=== PATIENT | female | born 1945 | race Hispanic/Latino ===

== ENCOUNTER 2016-08-15 11:01 | Emergency (ER) | payer MEDICARE, MEDICAID ==
[~2016-08-15] VITALS: Ht 160 cm; Wt 75.0 kg
[~2016-08-15 11:01] MED LIST: ASPI-1012 PO; CHOL100043 PO; CITA10TA14 PO; GLPZ5T PO; INSU100C4 SUBQ; INSU100V23 SQ; LEVO88TA4 PO; LORA10CA PO; METF-495 PO; PANT40TA2 PO; SMV40T PO; SYN.15T2 PO; ZES10 PO
[2016-08-15 11:03] VITALS: BP 131/81; PULSE 86; RESP 12; O2SAT 97
--- NOTE | 2016-08-15 11:23 | ED.REPORT ---
HPI-Abd Pain F 40 and Over Date of Service Aug 15, 2016 ED Provider: Paul Shetty MD 71 year old female presents to the ER complaining of three days of persistent stabbing left groin pain that radiates around her left side into her back, worsening today. Patient is unable to identify any actions or behavior that exacerbates symptoms. Patient denies fever, hematuria, dysuria, nausea, vomiting , and changes in bowel or urinary habits. Nursing Notes Stated Complaint: LEFT GROIN PAIN Chief Complaint: Female Abdominal Pain Nursing Notes Reviewed: Yes Allergies: Coded Allergies: No Known Allergies (Verified , 03/20/16) Scheduled Aspirin-Expunged Drug, Do Not Renew! (Ecotrin-Expunged Drug, Do Not Renew!) 81 Mg Tabec 81 MG PO QPM Cholecalciferol (Vitamin D3) (Vitamin D) 1,000 Unit Tablet 2,000 UNIT PO DAILY Ciprofloxacin (Ciprofloxacin) 500 Mg Tablet 500 MG PO BID Citalopram-Expunged Drug, Do Not Renew! (Citalopram-Expunged Drug, Do Not Renew! ) 10 Mg Tablet 10 MG PO QAM Glipizide (Glipizide) 5 Mg Tablet 5 MG PO DAILY Insulin Glargine-Expunged Drug, Do Not Renew! (Lantus-Expunged Drug, Do Not Renew!) 100 Units/Ml Pen.ij.kit 60 UNIT SUBQ PM Insulin Lispro-Expunged Drug, Do Not Renew! (Humalog-Expunged Drug, Do Not Renew !) 300 Unit Vial 10 UNIT SQ TID Levothyroxine (Levothyroxine) 88 Mcg Tablet 88 MCG PO DAILY Levothyroxine-Expunged Drug, Do Not Renew! (Synthroid-Expunged Drug, Do Not Renew!) 150 Mcg Tablet 75 MG PO DAILYAC 0.15 MG = 150 MCG Lisinopril-Expunged Drug, Do Not Renew! (Lisinopril-Expunged Drug, Do Not Renew! ) 10 Mg Tablet 10 MG PO DAILY Loratadine (Claritin) 10 Mg Capsule 10 MG PO DAILY Metformin ER (Metformin ER) 500 Mg Tablet 500 MG PO DAILY Pantoprazole DR (Protonix) 40 Mg Tablet 40 MG PO DAILYAC Simvastatin-Expunged Drug, Choose New Med! (Simvastatin-Expunged Drug, Choose New Med!) 40 Mg Tablet 40 MG PO HS INPATIENT MAX DOSE 40 MG General Time Seen by MD: 11:13 Chief Complaint Inguinal pain left Hx Obtained From: Patient Arrived By: Walk-in Sudden in Onset?: No Onset Occurred: 3 days ago Symptom Duration: Since onset Associated with: Denies: Chills, Diarrhea, Dysuria, Fever, Hematochezia, Hematuria, Melena, Nausea, Vomiting Past Medical History Past Medical History Notes: Metformin 500mg ASA 81mg Simvistatin 40mg Vitamin D3 2000unit Levothyroxine 75mcg Citalopram 10mg Lisinopril 10mg Past Medical History Obstructive sleep apnea, on CPAP High cholesterol Hypothyroidism Anxiety Reports: Diabetes mellitus, Hypertension Past Surgical History Appendectomy, cholecystectomy, stomach ulcer surgery. Family History Noncontributory Social History Alcohol Use: Denies alcohol use Drug Use: Denies drug use Other Social History: Local resident Ambulatory Status Independent Review of Systems Constitutional: Denies: Chills, Fever Respiratory: Denies: Non-productive cough, Shortness of breath GI: Reports: Abdominal pain (Left Groin), Denies: Diarrhea, Hematemesis, Hematochezia, Nausea, Vomiting Female: Denies: Dysuria, Flank pain, Hematuria, Pelvic pain, Urinary frequency, Urinary urgency, Vaginal bleeding - abnl, Vaginal discharge Complete sys rev & neg: except as marked. Physical Exam Vital Signs Vital Signs (First) Date Time Temp Pulse Resp B/P Pulse Ox O2 Delivery O2 Flow Rate FiO2 08/15/16 11:03 36.3 86 12 131/81 97 Room Air Initial VS: Reviewed Head / Eyes: Atraumatic, Normocephalic Neck: Supple, Non-tender, Full range of motion Extremities: Vascular intact, Neuro intact, No swelling, No tenderness Skin: Warm, Dry, No cyanosis Neurologic: Alert, Oriented, Nonfocal Psychiatric: Mood/affect normal, Behavior normal, Normal thought content General/Constitutional: Awake, Alert, Well developed, Well nourished Respiratory / Chest: Breath sounds NL, Breath sounds = bilat, No respiratory distress, No rales, No rhonchi, No wheezing, No stridor Cardiovascular: Heart rate NL, Regular rhythm, Heart sounds NL, Peripheral circulation NL Abdomen: Soft, No guarding, No rebound, No distention Well healed midline surgical incision. Vague tenderness about left groin region. No obvious hernias, swelling, redness or warmth. Back: Inspection NL, Non-tender, No CVA tenderness Interpretation & Diagnostics Lab Results Interpretation Result Diagram: 08/15/16 1210 08/15/16 1210 Test 08/15/16 11:15 08/15/16 12:10 Urine Color Straw (YELLOW) Urine Appearance Clear (CLEAR,HAZY) Urine pH 5.0 (5.0-8.0) Urine Specific [place] 1.014 (1.003-1.035) Urine Protein Negativemg/dL (NEG,TRACE) Urine Glucose (UA) Negativemg/dL (NEGATIVE) Urine Ketones Negativemg/dL (NEGATIVE) Urine Occult Blood Negative (NEGATIVE) Urine Nitrite Negative (NEGATIVE) Urine Bilirubin Negative (NEGATIVE) Urine Urobilinogen Normalmg/dL (NORMAL) Urine Leukocyte Esterase Moderate (NEGATIVE) Urine RBC 0-2/hpf (0-2) Urine WBC 11-50/hpf (0-5) Urine Epithelial Cells Moderate/hpf (NONE-MOD) Urine Crystals None seen (NONE SEEN) Urine Bacteria Moderate/hpf (NONE-FEW) Urine Hyaline Casts None/lpf (NONE) Urine Granular Casts None seen (NONE SEEN) Urine Waxy Casts None seen (NONE SEEN) Urine Red Blood Cell Casts None seen (NONE SEEN) Urine White Blood Cell Casts None seen (NONE SEEN) Urine Mucus None seen (None Seen) Urine Trichomonas None seen (NONE SEEN) Urine Yeast None (NONE SEEN) Urinalysis Comment None Urine Culture Reflexed Indicated Hold Urine Received (Received) White Blood Count 4.5th/mm3 (3.8-10.1) Red Blood Count 3.74mil/mm3 (3.90-5.20) Hemoglobin 11.3g/dL (12.0-15.6) Hematocrit 34.9% (35.0-46.0) Mean Corpuscular Volume 93.3fL (81-100) Mean Corpuscular Hemoglobin 30.2pg (27.0-35.0) Mean Corpuscular Hemoglobin Concent 32.4% (32.0-37.0) Red Cell Distribution Width 13.0% (12.3-15.4) Platelet Count 207bil/L (150-400) Neutrophils (%) (Auto) 56.5% (40-74) Lymphocytes (%) (Auto) 33.6% (14-46) Monocytes (%) (Auto) 6.6% (4-12) Eosinophils (%) (Auto) 2.4% (0-5) Basophils (%) (Auto) 0.7% (0-3) Sodium Level 134mEq/L (134-144) Potassium Level 4.4mEq/L (3.5-5.2) Chloride Level 97mEq/L (97-108) Carbon Dioxide Level 22mmol/L (18-29) Blood Urea Nitrogen 40mg/dL (8-27) Creatinine 1.28mg/dL (0.57-1.00) Estimat Glomerular Filtration Rate 59mL/min (>59) Glucose Level 217mg/dL (60-99) Calcium Level 9.4mg/dL (8.5-10.1) Magnesium Level 2.0mg/dL (1.6-2.6) Total Bilirubin 0.4mg/dL (0.0-1.2) Aspartate Amino Transf (AST/SGOT) 14U/L (0-50) Alanine Aminotransferase (ALT/SGPT) 10U/L (0-32) Alkaline Phosphatase 74U/L (25-165) Total Protein 7.7g/dL (6.4-8.4) Albumin 4.0g/dL (3.4-5.0) Lipase 34U/L (13-60) Hold Olivares Top Tube Received (Received) CT Abd / Pelvis Interpretation IMPRESSION: No acute abnormality. Hepatic steatosis. Incidental colonic diverticulosis. Fat-containing umbilical hernia. Appendix not technically visualized however no suspicious right lower quadrant inflammatory changes. Please correlate clinically. Dictated by: Aidan Diaz M.D. on 08/15/2016 at 14:29 Approved by: Aidan Diaz M.D. on 08/15/2016 at 14:33 Study type: Abdominal CT IV contrast Interpretation / Wet Read by: Interpret - Radiologist Re-Eval/Medical Decision Med Decision/Clinical Course 71 year old female presents to the ER complaining of three days of persistent stabbing left groin pain that radiates around her left side into her back, worsening today. Patient is unable to identify any actions or behavior that exacerbates symptoms. Patient denies fever, hematuria, dysuria, nausea, vomiting , and changes in bowel or urinary habits. Emergency Department the patient is afebrile and hemodynamically stable examination as above. Laboratory studies notable as below: No leukocytosis Hct 34.9 BUN 40 Creatinine 1.28 CMP otherwise normal UA shows moderate leukocyte esterase, moderate bacteria, nitrite negative, 11- [address] scan was obtained that demonstrated no evidence of acute surgical intra- abdominal process or incarcerated hernia. Patient is a somewhat vague historian and at this time extensive workup as above is notable only for evidence of urinary tract infection. Patient reported symptomatic improvement after treatment with Tylenol, IV fluids and Zofran for nausea. Serial abdominal examinations remained benign. Overall presentation at this time most consistent with urinary tract infection. Patient will be treated with a 7 day course of ciprofloxacin. Follow-up and return precautions were reviewed in detail and she was discharged in stable condition. Re-Evaluation/Progress : Time of Eval: 14:33 Re-Evaluation/Progress Note: Discussed lab and radiology results and plan to discharge. Patient is amenable to the plan. Return precautions given. All other questions addressed. Consultation : Consulted With: On-call physician (Radiology) Call Returned at: 14:28 Note: Discussed CT results with radiology. No acute changes. Counseled Regarding: Diagnosis, Lab results, Need for follow-up, When/why to return to ED Discharge & Departure Primary Impression: UTI (urinary tract infection) Urinary tract infection type: site unspecified Hematuria presence: with hematuria Qualified Code: N39.0 - Urinary tract infection, site not specified Additional Impression: Groin pain Laterality: left Qualified Code: R10.32 - Left lower quadrant pain Disposition: Home Discharge Condition All VS Reviewed: Yes Condition: Stable Patient Instructions: Urinary Tract Infection in Women (DC) Additional Instructions: Thank you for seeking care at emergency room. It is difficult for us to make definitive diagnoses in the ED but we believe that you are experiencing a urinary tract infection. Our primary goal today in the ED was to evaluate you for any life-threatening conditions. Your evaluation was reassuring. You will be discharged with a prescription for antibiotics. Please take these for 7 days as directed. Take all of the antibiotics, even if you are feeling better. You should follow-up with your primary doctor this week. You should return to the ED immediately if you develop worsening symptoms, fever , vomiting, or any other concerning signs or symptoms. Thank you for letting us partake in your care today. Fortino por buscar atencin en la zamzam de emergencias. Es difcil para nosotros hacer diagnsticos definitivos en el DE [place] creemos que usted est experimentando thomas infeccin del tracto urinario. Nuestra meta principal hoy en el ED fue evaluarle para cualquier condicin que amenaza la moshe. Bettencourt evaluacin fue tranquilizadora. Se le madi de bello con thomas receta de antibiticos. Por favor, tmelos por 7 d as segn las indicaciones. Supai todos los antibiticos, incluso si se siente mejor. Debe hacer un seguimiento con bettencourt mdico de cabecera esta semana. Debe regresar inmediatamente al servicio de urgencias si presenta sntomas que empeoran, fiebre, vmitos o cualquier otro signo o sntoma. Fortino por dejarnos participar en bettencourt cuidado hoy. Referrals: Al Figueroa MD (PCP) Scribe Attestation Portions of this note were transcribed by Alex Watson. I, Dr. Shetty, personally performed the history, physical exam and medical decision-making; I reviewed and confirmed the accuracy of the information in the transcribed note. Signed by: Alex Watson, Eric, 08/15/2016 and 14:36 copies to: Al Figueroa MD, Beck O MD Aug 15, 2016 11:23 ALEX WATSON Aug 15, 2016 12:00
[2016-08-15] MEDS ORDERED: 0.9% Sodium Chloride 1,000 ML IV ONE (11:55)
[2016-08-15] MEDS ORDERED: Ondansetron 2 mg/mL 2 mL Inj IVPUSH ONE (11:55)
[2016-08-15 12:18] LABS: APPEARANCE,URINE CLEAR (CLEAR,HAZY); COLOR,URINE STRAW (YELLOW)
[2016-08-15 12:19] LABS: OCCULT BLOOD,URINE NEGATIVE (NEGATIVE); UROBILINOGEN,URINE NORMAL (NORMAL)
[2016-08-15 12:24] LABS: BASOPHILS % (AUTO) 0.7 % (0-3); EOSINOPHILS % (AUTO) 2.4 % (0-5); MONOCYTES % (AUTO) 6.6 % (4-12); Mean Corpuscular Hemoglobin 30.2 pg (27.0-35.0); Mean Corpuscular Volume 93.3 fL (81-100); NEUTROPHILS % (AUTO) 56.5 % (40-74); Platelet Count 207 bil/L (150-400)
[2016-08-15] MEDS ORDERED: CIPR-198 PO (13:36)
[2016-08-15 13:45] VITALS: BP 101/56; PULSE 69; RESP 18; O2SAT 98
--- NOTE | 2016-08-15 14:35 | DRSVH ---
PROCEDURE: CT ABDOMEN AND PELVIS WITH CONTRAST ([id number]) INDICATIONS: LLQ/inguinal pain TECHNIQUE: After the administration of intravenous contrast, 5 mm thick sections acquired from the diaphragm to the symphysis. 5 mm coronal and sagittal reformats were acquired. For radiation dose reduction, the following was used: automated exposure control, adjustment of mA and/or kV according to patient angel mortensen. COMPARISON: [facility], CT, ABD/PELVIS W/CON (PNL), 07/30/2011, 20:43. FINDINGS: Image quality: Excellent. ABDOMEN: Lung bases: Scattered bibasilar scarring/atelectasis. Solid organs: Hepatic steatosis otherwise liver and spleen are normal in size and enhancement. Gallb ladder surgically absent. Biliary system is non dilated. Pancreas enhances normally. No adrenal no dules. Kidneys demonstrate normal size and enhancement, without hydronephrosis. Peritoneum and bowel: Bowel loops demonstrate normal wall thickness and caliber. No free fluid or a ir. Incidental colonic diverticulosis. The appendix is not well-visualized however no suspicious rig ht lower quadrant plantar changes Nodes and vessels: No retroperitoneal or mesenteric adenopathy by size criteria. Aorta and inferior vena cava are normal in size. Miscellaneous: 2 cm fat-containing umbilical hernia, with postsurgical effects PELVIS: Genitourinary: Bladder wall thickness is normal. Miscellaneous: No inguinal hernias or adenopathy. Bones: No suspicious bony lesions. No vertebral body compression fractures. IMPRESSION: No acute abnormality. Hepatic steatosis. Incidental colonic diverticulosis. Fat-containing umbilical hernia. Appendix not technically visualized however no suspicious right lower quadrant inflammatory changes. Please correlate clinically. Dictated by: Aidan Diaz M.D. on 08/15/2016 at 14:29 Approved by: Aidan Diaz M.D. on 08/15/2016 at 14:33
== END 2016-08-15 14:38 | disposition home or self-care (01) ==
LOC: SED 11:01
DX: N39.0 Urinary tract infection, site not specified (principal); B96.20 Unspecified Escherichia coli [E. coli] as the cause of diseases classified elsewhere; E11.9 Type 2 diabetes mellitus without complications; I10 Essential (primary) hypertension; E03.9 Hypothyroidism, unspecified; Z79.84 Long term (current) use of oral hypoglycemic drugs; Z79.82 Long term (current) use of aspirin; Z79.4 Long term (current) use of insulin
CPT/HCPCS: 36415; 74177; 80053; 81000; 83690; 83735; 85025; 87077; 87086; 87088; 87186; 96361; 96374; 99285; J2405; J7030; Q9967

== ENCOUNTER 2016-08-27 09:49 | Emergency (ER) | payer MEDICARE, MEDICAID ==
[~2016-08-27] VITALS: Ht 160 cm; Wt 78.0 kg
[~2016-08-27 09:49] MED LIST changes: +CIPR-198 PO
[2016-08-27 10:05] VITALS: BP 123/81; PULSE 86; O2SAT 97
--- NOTE | 2016-08-27 11:02 | ED.REPORT ---
HPI-Abd Pain F 40 and Over Date of Service Aug 27, 2016 ED Provider: Al Khanna MD Pt is a 71 y/o female w/ a hx of IDDM, HTN, hyperlipidemia, presenting to the ED c/o LLQ abdominal pain and left lower back pain onset 1 month ago. The patient was seen on Aug 15 for similar LLQ abdominal pain and was diagnosed with a UTI and placed on antibiotics. She went to her PCP for re-evaluation and was told that she did not have a UTI so she stopped her course of abx. Her pain has persisted. She denies fever, N/V/D, bloody stools, CP, SOB, dysuria, hematuria, constipation. Nursing Notes Stated Complaint: LOWER LT ABDOMINAL PAIN Chief Complaint: Female Abdominal Pain Nursing Notes Reviewed: Yes Allergies: Coded Allergies: No Known Allergies (Verified , 03/20/16) Scheduled Aspirin-Expunged Drug, Do Not Renew! (Ecotrin-Expunged Drug, Do Not Renew!) 81 Mg Tabec 81 MG PO QPM Cholecalciferol (Vitamin D3) (Vitamin D) 1,000 Unit Tablet 2,000 UNIT PO DAILY Ciprofloxacin (Ciprofloxacin) 500 Mg Tablet 500 MG PO BID Ciprofloxacin (Ciprofloxacin) 500 Mg Tablet 500 MG PO BID Citalopram-Expunged Drug, Do Not Renew! (Citalopram-Expunged Drug, Do Not Renew! ) 10 Mg Tablet 10 MG PO QAM Glipizide (Glipizide) 5 Mg Tablet 5 MG PO DAILY Insulin Glargine-Expunged Drug, Do Not Renew! (Lantus-Expunged Drug, Do Not Renew!) 100 Units/Ml Pen.ij.kit 60 UNIT SUBQ PM Insulin Lispro-Expunged Drug, Do Not Renew! (Humalog-Expunged Drug, Do Not Renew !) 300 Unit Vial 10 UNIT SQ TID Levothyroxine (Levothyroxine) 88 Mcg Tablet 88 MCG PO DAILY Levothyroxine-Expunged Drug, Do Not Renew! (Synthroid-Expunged Drug, Do Not Renew!) 150 Mcg Tablet 75 MG PO DAILYAC 0.15 MG = 150 MCG Lisinopril-Expunged Drug, Do Not Renew! (Lisinopril-Expunged Drug, Do Not Renew! ) 10 Mg Tablet 10 MG PO DAILY Loratadine (Claritin) 10 Mg Capsule 10 MG PO DAILY Metformin ER (Metformin ER) 500 Mg Tablet 500 MG PO DAILY Pantoprazole DR (Protonix) 40 Mg Tablet 40 MG PO DAILYAC Simvastatin-Expunged Drug, Choose New Med! (Simvastatin-Expunged Drug, Choose New Med!) 40 Mg Tablet 40 MG PO HS INPATIENT MAX DOSE 40 MG General Time Seen by MD: 10:59 Chief Complaint Abdominal pain Hx Obtained From: Patient Arrived By: Walk-in Sudden in Onset?: No Onset Occurred: More than a week ago... (1 month) Symptom Duration: Intermittent Progression since Onset: Intermittent Location: : LLQ Quality: Painful Radiation: : Back Severity: Current: Mild Severity: Maximum: Moderate Past Medical History Past Medical History Notes: Metformin 500mg ASA 81mg Simvistatin 40mg Vitamin D3 2000unit Levothyroxine 75mcg Citalopram 10mg Lisinopril 10mg Past Medical History Obstructive sleep apnea, on CPAP Hyperlipidemia Hypothyroidism Anxiety Diabetes Hypertension Past Surgical History Appendectomy, Cholecystectomy, Stomach ulcer surgery. Family History Noncontributory Smoking History Never Smoker Social History Alcohol Use: Denies alcohol use Drug Use: Denies drug use Other Social History: Good social support, Local resident Ambulatory Status Independent Review of Systems Constitutional: Denies: Chills, Fever Respiratory: Denies: Shortness of breath Cardiovascular: Denies: Chest pain GI: Reports: Abdominal pain, Denies: Bloody/tarry stool, Constipation, Diarrhea, Hematochezia, Nausea, Vomiting Female: Denies: Dysuria, Hematuria Musculoskeletal: Reports: Lumbar pain Complete sys rev & neg: except as marked. Physical Exam Vital Signs Vital Signs (First) Date Time Temp Pulse Resp B/P Pulse Ox O2 Delivery O2 Flow Rate FiO2 08/27/16 10:05 36.4 86 123/81 97 Room Air Initial VS: Reviewed, Vital signs normal Head / Eyes: Atraumatic, Normocephalic, PERRL ENT: Mucous membranes moist, Conjunctiva normal, No scleral icterus Neck: Supple, Full range of motion Extremities: Vascular intact, Neuro intact, No swelling, No tenderness Skin: Warm, Dry, No cyanosis Neurologic: Alert, Oriented, Nonfocal Psychiatric: Mood/affect normal, Behavior normal, Normal thought content General/Constitutional: Awake, Alert, No acute distress, Cooperative, Not toxic appearing Respiratory / Chest: Atraumatic, Breath sounds NL, Breath sounds = bilat, No respiratory distress, No rales, No rhonchi, No wheezing, No retractions, No stridor, No chest tenderness, No chest wall deformity, No crepitus Cardiovascular: Heart rate NL, Regular rhythm, Heart sounds NL, No gallop, No murmurs, No rubs, Cap refill not delayed, Peripheral circulation NL Abdomen: Atraumatic, Soft, No guarding, No rebound, No distention, No palpable mass Tenderness/Guarding/Rebound: Positive: Tender LLQ... (Moderate) Back: Full range of motion, Painless range of motion, No midline vertebral tend , No CVA tenderness Left lumbar back tenderness Interpretation & Diagnostics Lab Results Interpretation Result Diagram: 08/27/16 1135 08/27/16 1135 Test 08/27/16 11:35 08/27/16 11:59 White Blood Count 5.1th/mm3 (3.8-10.1) Red Blood Count 3.63mil/mm3 (3.90-5.20) Hemoglobin 11.2g/dL (12.0-15.6) Hematocrit 34.3% (35.0-46.0) Mean Corpuscular Volume 94.5fL (81-100) Mean Corpuscular Hemoglobin 30.9pg (27.0-35.0) Mean Corpuscular Hemoglobin Concent 32.7% (32.0-37.0) Red Cell Distribution Width 13.0% (12.3-15.4) Platelet Count 195bil/L (150-400) Neutrophils (%) (Auto) 55.9% (40-74) Lymphocytes (%) (Auto) 35.0% (14-46) Monocytes (%) (Auto) 6.1% (4-12) Eosinophils (%) (Auto) 2.2% (0-5) Basophils (%) (Auto) 0.6% (0-3) Sodium Level 141mEq/L (134-144) Potassium Level 4.4mEq/L (3.5-5.2) Chloride Level 101mEq/L (97-108) Carbon Dioxide Level 27mmol/L (18-29) Blood Urea Nitrogen 17mg/dL (8-27) Creatinine 1.06mg/dL (0.57-1.00) Estimat Glomerular Filtration Rate 73mL/min (>59) Glucose Level 148mg/dL (60-99) Calcium Level 9.7mg/dL (8.5-10.1) Magnesium Level 1.5mg/dL (1.6-2.6) Total Bilirubin 0.4mg/dL (0.0-1.2) Aspartate Amino Transf (AST/SGOT) 13U/L (0-50) Alanine Aminotransferase (ALT/SGPT) 8U/L (0-32) Alkaline Phosphatase 72U/L (25-165) Total Protein 7.5g/dL (6.4-8.4) Albumin 4.2g/dL (3.4-5.0) Lipase 31U/L (13-60) Hold Olivares Top Tube Received (Received) Urine Color Straw (YELLOW) Urine Appearance Hazy (CLEAR,HAZY) Urine pH 6.0 (5.0-8.0) Urine Specific [place] 1.020 (1.003-1.035) Urine Protein Negativemg/dL (NEG,TRACE) Urine Glucose (UA) Negativemg/dL (NEGATIVE) Urine Ketones Negativemg/dL (NEGATIVE) Urine Occult Blood Negative (NEGATIVE) Urine Nitrite Negative (NEGATIVE) Urine Bilirubin Negative (NEGATIVE) Urine Urobilinogen Normalmg/dL (NORMAL) Urine Leukocyte Esterase Small (NEGATIVE) Urine RBC 0-2/hpf (0-2) Urine WBC 11-50/hpf (0-5) Urine Epithelial Cells Occasional/hpf (NONE-MOD) Urine Crystals None seen (NONE SEEN) Urine Bacteria Many/hpf (NONE-FEW) Urine Hyaline Casts None/lpf (NONE) Urine Granular Casts None seen (NONE SEEN) Urine Waxy Casts None seen (NONE SEEN) Urine Red Blood Cell Casts None seen (NONE SEEN) Urine White Blood Cell Casts None seen (NONE SEEN) Urine Mucus None seen (None Seen) Urine Trichomonas None seen (NONE SEEN) Urine Yeast None (NONE SEEN) Urinalysis Comment None Urine Culture Reflexed Indicated CT Abd / Pelvis Interpretation IMPRESSION: Source of left lower quadrant pain is not seen. There is a very small fat containing periumbilical hernia, showing no sign of incarceration or strangulation. No bowel content extends into this area. Dictated by: Terrance Lynch M.D. on 08/27/2016 at 13:02 Approved by: Terrance Lynch M.D. on 08/27/2016 at 13:04 Study type: Abdominal CT IV contrast Interpretation / Wet Read by: Interpret - Radiologist Re-Eval/Medical Decision Med Decision/Clinical Course 71-year-old female presenting complaining of left lower quadrant and low back pain 1 month. Patient was here ten days ago and diagnosed with UTI. She did not take her antibiotics that she was told by her primary doctor that she did not have a UTI. She presents with recurrence of pain. No other associated symptoms. Tender left lower quadrant. And positive for infection. CT abdomen and pelvis with no acute pathology. VSS. No signs pyelonephritis. Patient was prescribed Keflex and recommended take her antibiotics. She agrees to do this. Return precautions given. Re-Evaluation/Progress : Time of Eval: 13:19 Re-Evaluation/Progress Note: Pt rechecked. Informed pt of plan for treatment. Pt understands and agrees with plan for treatment. F/U and RTER warnings given. All questions addressed. Counseled Regarding: Diagnosis, Lab results, Need for follow-up, When/why to return to ED Discharge & Departure Primary Impression: UTI (urinary tract infection) Urinary tract infection type: site unspecified Hematuria presence: without hematuria Qualified Code: N39.0 - Urinary tract infection, site not specified Disposition: Home Discharge Condition All VS Reviewed: Yes Condition: Stable Patient Instructions: Urinary Tract Infection in Women (ED) Additional Instructions: Your labs today showed signs of a urinary tract infection which may be causing your pain. Your CT scan today was normal. Please take the full course of the antibiotics as directed. Do not stop taking the antibiotics. Return to the emergency if you experience increasing pain, vomiting, high fever , profound weakness or lightheadedness, or for other concerning symptoms. Follow-up with your primary care doctor in 2 days if symptoms persist. Renay laboratorios mostraron hoy signos de thomas infeccin del tracto urinario que puede estar causando bettencourt dolor. Bettencourt tomografa computarizada de hoy era normal. Por favor, tome el curso completo de los antibiticos segn las indicaciones. No deje de daniel los antibiticos. Vuelva a la emergencia si experimenta un aumento del dolor, vmitos, fiebre bello , debilidad profunda o mareos, o para otros sntomas relacionados. Seguir con bettencourt mdico de atencin primaria en 2 ro si los sntomas persisten. Referrals: Al Figueroa MD (PCP) Scribe Attestation Portions of this note were transcribed by Ye Mccord. I, Dr. Khanna personally performed the history, physical exam and medical decision-making; I reviewed and confirmed the accuracy of the information in the transcribed note. Signed by Eric Jimenez, 08/27/16 - 1200 copies to: Al Figueroa MD, Ben M MD Aug 27, 2016 11:01 YE MCCORD Aug 27, 2016 11:37
[2016-08-27] MEDS ORDERED: 0.9% Sodium Chloride 1,000 ML IV ONE (11:05)
[2016-08-27] MEDS ORDERED: Ondansetron 2 mg/mL 2 mL Inj IVPUSH PRN (11:05)
[2016-08-27] MEDS ORDERED: TdaP Vaccine 0.5 mL Inj IM ONE (11:19)
[2016-08-27 11:41] LABS: BASOPHILS % (AUTO) 0.6 % (0-3); EOSINOPHILS % (AUTO) 2.2 % (0-5); MONOCYTES % (AUTO) 6.1 % (4-12); Mean Corpuscular Hemoglobin 30.9 pg (27.0-35.0); Mean Corpuscular Volume 94.5 fL (81-100); NEUTROPHILS % (AUTO) 55.9 % (40-74); Platelet Count 195 bil/L (150-400)
[2016-08-27 12:04] LABS: Magnesium 1.5 mg/dL (1.6-2.6)
[2016-08-27 12:14] LABS: APPEARANCE,URINE HAZY (CLEAR,HAZY); COLOR,URINE STRAW (YELLOW); OCCULT BLOOD,URINE NEGATIVE (NEGATIVE); UROBILINOGEN,URINE NORMAL (NORMAL)
--- NOTE | 2016-08-27 13:06 | DRSVH ---
PROCEDURE: CT ABDOMEN AND PELVIS WITH CONTRAST ([id number]) INDICATIONS: LLQ tenderness, abd wall TECHNIQUE: After the administration of intravenous contrast, 5 mm thick sections acquired from the diaphragm to the symphysis. 5 mm coronal and sagittal reformats were acquired. For radiation dose reduction, the following was used: automated exposure control, adjustment of mA and/or kV according to patient angel mortensen. COMPARISON: [facility], CT, CT ABD PELVIS W CON, 08/15/2016, 13:25. FINDINGS: Image quality: Excellent. ABDOMEN: Lung bases: Lung bases are clear. Heart size is normal. Solid organs: Liver and spleen are normal in size and enhancement. Gallbladder has been previously resected. Biliary system is non dilated. Pancreas enhances normally. No adrenal nodules. Kidneys demonstrate normal size and enhancement, without hydronephrosis. Peritoneum and bowel: Bowel loops demonstrate normal wall thickness and caliber. No free fluid or a ir. Nodes and vessels: No retroperitoneal or mesenteric adenopathy by size criteria. Aorta and inferior vena cava are normal in size. Miscellaneous: There is a small fat containing periumbilical ventral hernia, without evidence of inca rceration or strangulation. PELVIS: Genitourinary: Bladder wall thickness is normal. Miscellaneous: No inguinal hernias or adenopathy. Bones: No suspicious bony lesions. No vertebral body compression fractures. IMPRESSION: Source of left lower quadrant pain is not seen. There is a very small fat containing per iumbilical hernia, showing no sign of incarceration or strangulation. No bowel content extends into this area. Dictated by: Terrance Lynch M.D. on 08/27/2016 at 13:02 Approved by: Terrance Lynch M.D. on 08/27/2016 at 13:04
[2016-08-27] MEDS ORDERED: CIPR-198 PO (13:23)
[2016-08-27 13:39] VITALS: BP 122/81; PULSE 84; O2SAT 97
== END 2016-08-27 13:39 | disposition home or self-care (01) ==
LOC: SED 09:49
DX: N39.0 Urinary tract infection, site not specified (principal); B96.20 Unspecified Escherichia coli [E. coli] as the cause of diseases classified elsewhere; E11.9 Type 2 diabetes mellitus without complications; I10 Essential (primary) hypertension; E78.5 Hyperlipidemia, unspecified; E03.9 Hypothyroidism, unspecified; Z79.84 Long term (current) use of oral hypoglycemic drugs; Z79.82 Long term (current) use of aspirin; Z79.4 Long term (current) use of insulin
CPT/HCPCS: 36415; 74177; 80053; 81000; 83690; 83735; 85025; 87077; 87086; 87088; 87186; 96361; 96374; 96375; 99285; J2270; J2405; J7030; Q9967

== ENCOUNTER 2016-09-13 02:28 | Emergency (ER) | payer MEDICARE, MEDICAID ==
[2016-09-13 02:32] VITALS: BP 155/95; PULSE 107; RESP 16; O2SAT 96
--- NOTE | 2016-09-13 03:35 | ED.REPORT ---
HPI-Chest Pain 40 and Over Date of Service Sep 13, 2016 ED Provider: Timur Rey MD Patient is a 71 year old female with a history of diabetes mellitus, hypertension, hyperlipidemia, obstructive sleep apnea on CPAP, and hypothyroidism who presents to the ED complaining of substernal chest pain which began at 9:10pm this evening. Patient reports waxing and waning heaviness. She states that her pain is mildly improved at this time. Patient rates her pain at a 10/10. She admits to radiation of her pain up her neck. Patient denies fever, cough, shortness of breath, diaphoresis, nausea, vomiting , or diarrhea. Patient denies a history of coronary artery disease or myocardial infarction. Nursing Notes Stated Complaint: CHEST PAIN Chief Complaint: Chest Pain Nursing Notes Reviewed: Yes Allergies: Coded Allergies: No Known Allergies (Verified , 03/20/16) Scheduled Aspirin-Expunged Drug, Do Not Renew! (Ecotrin-Expunged Drug, Do Not Renew!) 81 Mg Tabec 81 MG PO QPM Azithromycin (Zithromax) 250 Mg Tablet 250 MG PO DAILY Cholecalciferol (Vitamin D3) (Vitamin D) 1,000 Unit Tablet 2,000 UNIT PO DAILY Ciprofloxacin (Ciprofloxacin) 500 Mg Tablet 500 MG PO BID Ciprofloxacin (Ciprofloxacin) 500 Mg Tablet 500 MG PO BID Citalopram-Expunged Drug, Do Not Renew! (Citalopram-Expunged Drug, Do Not Renew! ) 10 Mg Tablet 10 MG PO QAM Glipizide (Glipizide) 5 Mg Tablet 5 MG PO DAILY Insulin Glargine-Expunged Drug, Do Not Renew! (Lantus-Expunged Drug, Do Not Renew!) 100 Units/Ml Pen.ij.kit 60 UNIT SUBQ PM Insulin Lispro-Expunged Drug, Do Not Renew! (Humalog-Expunged Drug, Do Not Renew !) 300 Unit Vial 10 UNIT SQ TID Levothyroxine (Levothyroxine) 88 Mcg Tablet 88 MCG PO DAILY Levothyroxine-Expunged Drug, Do Not Renew! (Synthroid-Expunged Drug, Do Not Renew!) 150 Mcg Tablet 75 MG PO DAILYAC 0.15 MG = 150 MCG Lisinopril-Expunged Drug, Do Not Renew! (Lisinopril-Expunged Drug, Do Not Renew! ) 10 Mg Tablet 10 MG PO DAILY Loratadine (Claritin) 10 Mg Capsule 10 MG PO DAILY Metformin ER (Metformin ER) 500 Mg Tablet 500 MG PO DAILY Pantoprazole DR (Protonix) 40 Mg Tablet 40 MG PO DAILYAC Simvastatin-Expunged Drug, Choose New Med! (Simvastatin-Expunged Drug, Choose New Med!) 40 Mg Tablet 40 MG PO HS INPATIENT MAX DOSE 40 MG General Time Seen by MD: 03:30 Chief Complaint Chest pain Hx Obtained From: Patient Arrived By: Walk-in Sudden in Onset?: No Onset Occurred: 5 - 8 hours ago Symptom Duration: Waxes and wanes Location: : Substernal Quality: Heaviness, Painful Radiation: : Neck Severity: Current: Pain level 10 out of 10 Severity: Maximum: Pain level 10 out of 10 Recent Healthcare: No recent doctor visit, No recent hospitalization Similar Sx Previous: Yes Past Medical History Past Medical History Obstructive sleep apnea, on CPAP Hyperlipidemia Hypothyroidism Anxiety Diabetes Hypertension Past Surgical History Appendectomy, Cholecystectomy, Stomach ulcer surgery. Family History Noncontributory Smoking History Never Smoker Social History Alcohol Use: Denies alcohol use Drug Use: Denies drug use Other Social History: Good social support, Local resident Ambulatory Status Independent Review of Systems Constitutional: Denies: Chills Respiratory: Denies: Non-productive cough, Shortness of breath Cardiovascular: Reports: Chest pain, Denies: Palpitations GI: Denies: Diarrhea, Nausea, Vomiting Musculoskeletal: Reports: Neck pain Skin: Denies Diaphoresis Complete sys rev & neg: except as marked. Physical Exam Initial Vital Signs Vital Signs (First) Date Time Temp Pulse Resp B/P Pulse Ox O2 Delivery O2 Flow Rate FiO2 09/13/16 02:32 36.4 107 16 155/95 96 Room Air Initial VS: Reviewed, Vital signs abnormal Head / Eyes: Atraumatic, Normocephalic, PERRL ENT: Mucous membranes moist, Conjunctiva normal, No scleral icterus Skin: Warm, Dry, No cyanosis Neurologic: Alert, Oriented, Nonfocal Psychiatric: Mood/affect normal, Behavior normal, Normal thought content General/Constitutional: Awake, Alert, No acute distress Respiratory / Chest: Breath sounds NL, Breath sounds = bilat, No respiratory distress, No rales, No rhonchi, No wheezing, No chest tenderness Cardiovascular: Regular rhythm, Heart sounds NL, No murmurs Heart Rate / Rhythm: Positive: Tachycardia Abdomen: Soft, Non-tender, No guarding, No rebound Neck: Supple, No JVD Lower Extremity / Pelvis / MS: No swelling, No edema Interpretation & Diagnostics Lab Results Interpretation Result Diagram: 09/13/165 09/13/16 0315 Test 09/13/16 03:15 09/13/16 09:16 White Blood Count 5.7th/mm3 (3.8-10.1) Red Blood Count 3.60mil/mm3 (3.90-5.20) Hemoglobin 11.0g/dL (12.0-15.6) Hematocrit 33.2% (35.0-46.0) Mean Corpuscular Volume 92.2fL (81-100) Mean Corpuscular Hemoglobin 30.6pg (27.0-35.0) Mean Corpuscular Hemoglobin Concent 33.1% (32.0-37.0) Red Cell Distribution Width 13.1% (12.3-15.4) Platelet Count 225bil/L (150-400) Neutrophils (%) (Auto) 52.2% (40-74) Lymphocytes (%) (Auto) 36.2% (14-46) Monocytes (%) (Auto) 8.6% (4-12) Eosinophils (%) (Auto) 2.3% (0-5) Basophils (%) (Auto) 0.5% (0-3) Sodium Level 131mEq/L (134-144) Potassium Level 4.4mEq/L (3.5-5.2) Chloride Level 92mEq/L (97-108) Carbon Dioxide Level 22mmol/L (18-29) Blood Urea Nitrogen 25mg/dL (8-27) Creatinine 0.95mg/dL (0.57-1.00) Estimat Glomerular Filtration Rate 83mL/min (>59) Glucose Level 485mg/dL (60-99) Calcium Level 9.2mg/dL (8.5-10.1) Magnesium Level 1.7mg/dL (1.6-2.6) Total Bilirubin 0.3mg/dL (0.0-1.2) Aspartate Amino Transf (AST/SGOT) 14U/L (0-50) Alanine Aminotransferase (ALT/SGPT) 11U/L (0-32) Alkaline Phosphatase 75U/L (25-165) Troponin T 0.010ug/L (0.0-0.011) Total Protein 7.7g/dL (6.4-8.4) Albumin 4.2g/dL (3.4-5.0) Hold Urine Received (Received) Lab Results Interpretation: Elevated blood glucose, normal troponin ECG Interpretation Time: 01:45 Interpreted by: ED physician Normal ECG Interpretation: Normal ECG w/ rate of... (78), No acute ischemic changes X-Ray Chest Interpretation Chest Xray Interpretation: Impression: Right lower lobe pneumonia. View: Portable Interpretation / Wet Read by: Wet read ED physician Re-Eval/Medical Decision Med Decision/Clinical Course 71-year-old female who comes in with some chest discomfort and cough blood sugar is also elevated. She has a right lower lobe pneumonia on x-ray. She will be given azithromycin, 500 mg now and then 250 daily for 4 more days. She will follow-up with her primary doctor. Source of Hx: Old records Time of Eval: 06:20 Re-Evaluation/Progress Note: Rechecked the patient to discuss the results of her labs, EKG, and chest x-ray. The patient has pneumonia. Patient understands and agrees with treatment plan. All questions were addressed. Counseled Regarding: Diagnosis, Lab results Discharge & Departure Primary Impression: Pneumonia Pneumonia type: due to unspecified organism Laterality: right Lung location : lower lobe of lung Qualified Code: J18.9 - Pneumonia, unspecified organism Disposition: Home Discharge Condition All VS Reviewed: Yes Condition: Stable Patient Instructions: Community-acquired Pneumonia (ED), Managing Diabetes During Sick Days (ED) Additional Instructions: Azithromycin 500 mg given in the emergency room to be followed by 250 mg daily for 4 more days. Return here if you have recurrent chest pain. Please see accompanying instructions on managing your diabetes during sick days. Referrals: Al Figueroa MD (PCP) Scribe Attestation Portions of this note were transcribed by Jaylene Aragon. I, Dr. Rey personally performed the history, physical exam and medical decision-making; I reviewed and confirmed the accuracy of the information in the transcribed note. Signed by: Eric Betancur, 09/13/2016 0621 copies to: Al Figueroa MD, Howard L MD Sep 13, 2016 03:35 Jaylene Aragon Sep 13, 2016 03:43
[2016-09-13 03:43] LABS: BASOPHILS % (AUTO) 0.5 % (0-3); EOSINOPHILS % (AUTO) 2.3 % (0-5); MONOCYTES % (AUTO) 8.6 % (4-12); Mean Corpuscular Hemoglobin 30.6 pg (27.0-35.0); Mean Corpuscular Volume 92.2 fL (81-100); NEUTROPHILS % (AUTO) 52.2 % (40-74); Platelet Count 225 bil/L (150-400)
[2016-09-13 04:15] LABS: TROPONIN T 0.01 ug/L (0.0-0.011)
[2016-09-13 04:20] LABS: Magnesium 1.7 mg/dL (1.6-2.6)
[2016-09-13 04:58] VITALS: BP 120/77; PULSE 82; RESP 22; O2SAT 94
[2016-09-13] MEDS ORDERED: ZIT250 PO (07:06)
[2016-09-13 07:09] VITALS: BP 138/76; PULSE 88; RESP 16; O2SAT 99
[2016-09-13 07:19] VITALS: BP 138/76; PULSE 88; RESP 16; O2SAT 99
--- NOTE | 2016-09-13 09:36 | DRSVH ---
PROCEDURE: X-RAY CHEST ONE VIEW, PORTABLE ([id number]) INDICATIONS: CP TECHNIQUE: One view of the chest was acquired. COMPARISON: [facility], CR, XR CHEST 1VW (PORTABLE), 03/20/2016, 17:46. FINDINGS: Surgical changes and devices: None. Lungs and pleura: No pleural effusions or pneumothorax. Lungs are clear and interstitium is promine nt. Mediastinum: Mediastinal contours appear normal. Heart size is normal. Bones and chest wall: No suspicious bony lesions. Overlying soft tissues appear unremarkable. IMPRESSION: Mild prominence of the interstitium and mild developing edema cannot be excluded. Differ ential would include atypical pneumonia. Dictated by: Stewart POPE Interpreted: Shahana Saldana MD on 09/13/2016 at 9:35 Transcribed by: ROHAN on 09/13/2016 at 9:36 Approved by: Shahana Saldana M.D. on 09/13/2016 at 16:44
== END 2016-09-13 07:19 | disposition home or self-care (01) ==
LOC: SED 02:28
DX: J18.9 Pneumonia, unspecified organism (principal); E11.59 Type 2 diabetes mellitus with other circulatory complications; E78.5 Hyperlipidemia, unspecified; E03.9 Hypothyroidism, unspecified; Z79.82 Long term (current) use of aspirin; Z79.84 Long term (current) use of oral hypoglycemic drugs; Z79.4 Long term (current) use of insulin

== ENCOUNTER 2016-12-11 17:58 | Emergency (ER) | payer MEDICARE, MEDICAID ==
[~2016-12-11] VITALS: Ht 160 cm; Wt 81.1 kg
[~2016-12-11 17:58] MED LIST changes: +ZIT250 PO
[2016-12-11 18:07] VITALS: BP 121/72; PULSE 79; RESP 16; O2SAT 97
--- NOTE | 2016-12-11 18:22 | ED.REPORT ---
HPI-Hip/Pelvis Prob/Inj Date of Service Dec 11, 2016 ED Provider: Freddy Echeverria MD The patient is a 71 year old female w/ a hx of DM, hyperlipidemia, and HTN who presents to the ED due to left inguinal pain that radiates up into her abdomen sudden onset about an hour ago. She describes the pain as constant at 10/10 and is slightly exacerbated by walking. She denies dysuria, hematuria, changes in bowel movements, injury, and fever. Nursing Notes Stated Complaint: HIP PAIN Chief Complaint: Extremity Trauma Nursing Notes Reviewed: Yes Allergies: Coded Allergies: No Known Allergies (Verified , 12/11/16) Scheduled Aspirin-Expunged Drug, Do Not Renew! (Ecotrin-Expunged Drug, Do Not Renew!) 81 Mg Tabec 81 MG PO QPM Azithromycin (Zithromax) 250 Mg Tablet 250 MG PO DAILY Cephalexin (Cephalexin) 500 Mg Capsule 500 MG PO QID Cholecalciferol (Vitamin D3) (Vitamin D) 1,000 Unit Tablet 2,000 UNIT PO DAILY Ciprofloxacin (Ciprofloxacin) 500 Mg Tablet 500 MG PO BID Ciprofloxacin (Ciprofloxacin) 500 Mg Tablet 500 MG PO BID Citalopram-Expunged Drug, Do Not Renew! (Citalopram-Expunged Drug, Do Not Renew! ) 10 Mg Tablet 10 MG PO QAM Glipizide (Glipizide) 5 Mg Tablet 5 MG PO DAILY Insulin Glargine-Expunged Drug, Do Not Renew! (Lantus-Expunged Drug, Do Not Renew!) 100 Units/Ml Pen.ij.kit 60 UNIT SUBQ PM Insulin Lispro-Expunged Drug, Do Not Renew! (Humalog-Expunged Drug, Do Not Renew !) 300 Unit Vial 10 UNIT SQ TID Levothyroxine (Levothyroxine) 88 Mcg Tablet 88 MCG PO DAILY Levothyroxine-Expunged Drug, Do Not Renew! (Synthroid-Expunged Drug, Do Not Renew!) 150 Mcg Tablet 75 MG PO DAILYAC 0.15 MG = 150 MCG Lisinopril-Expunged Drug, Do Not Renew! (Lisinopril-Expunged Drug, Do Not Renew! ) 10 Mg Tablet 10 MG PO DAILY Loratadine (Claritin) 10 Mg Capsule 10 MG PO DAILY Metformin ER (Metformin ER) 500 Mg Tablet 500 MG PO DAILY Pantoprazole DR (Protonix) 40 Mg Tablet 40 MG PO DAILYAC Simvastatin-Expunged Drug, Choose New Med! (Simvastatin-Expunged Drug, Choose New Med!) 40 Mg Tablet 40 MG PO HS INPATIENT MAX DOSE 40 MG General Time Seen by Provider: 18:29 Chief Complaint Other (left inguinal pain) Hx Obtained From: Patient Arrived By: Walk-in Onset Occurred: 1 - 4 hours ago Symptom Duration: Since onset Progression Since Onset: Constant Quality: Painful Severity: Current: Pain level 10 out of 10 Recent Healthcare: No recent doctor visit, No recent hospitalization Similar Sx Previous: No Past Medical History Past Medical History Obstructive sleep apnea, on CPAP Hyperlipidemia Hypothyroidism Anxiety Diabetes Hypertension Past Surgical History Appendectomy, Cholecystectomy, Stomach ulcer surgery. Family History Noncontributory Smoking History Never Smoker Social History Alcohol Use: Denies alcohol use Drug Use: Denies drug use Other Social History: Good social support, Local resident Ambulatory Status Independent Review of Systems Constitutional: Denies: Fever Musculoskeletal: Denies: Extremity pain, Extremity swelling Neurologic: Denies: Change LOC Complete sys rev & neg: except as marked. GI: Reports: Abdominal pain (left inguinal pain), Denies: Constipation, Diarrhea Female: Denies: Dysuria, Hematuria, Urinary frequency, Urinary urgency, Urination decreased, Urination increased Physical Exam Initial Vital Signs Vital Signs (First) Date Time Temp Pulse Resp B/P Pulse Ox O2 Delivery O2 Flow Rate FiO2 17 18:07 36.7 79 16 121/72 97 Room Air Initial VS: Reviewed Lower Extremity / Pelvis / MS: No deformity pain with passive AD duction of the left hip and flexion of the left hip General/Constitutional: Awake, Alert, Cooperative, Not toxic appearing Head / Eyes: Atraumatic, Normocephalic, PERRL Respiratory / Chest: Atraumatic, Breath sounds NL, Breath sounds = bilat, No respiratory distress Cardiovascular: Heart rate NL, Regular rhythm, Heart sounds NL, No gallop, No murmurs, No rubs Abdomen: BS normoactive Tenderness/Guarding/Rebound: Positive: Tender LLQ... RUQ scar consistent with cholecystectomy midline surgical scar across upper midline abdomen Back: Inspection NL, No CVA tenderness Skin: Atraumatic, Warm, Dry Neurologic Neurologic: Oriented X3, Speech NL, No motor deficits Upper Extremity / MS: Inspection NL, Full range of motion, No deformity Interpretation & Diagnostics Interpretation & Diagnostics: ABDOMEN CT IMPRESSION: Cause of left lower quadrant abdominal pain is not identified. Colonic diverticula but no inflammation. Previous cholecystectomy. Bowel gas pattern is considered within normal limits with some fluid in some of the mid to proximal small bowel loops thought to be a normal pattern without identifiable transition point to suggest obstruction. Dictated by: Jin Joshua M.D. on 12/11/2016 at 20:08 Approved by: Jin Joshua M.D. on 12/11/2016 at 20:17 Lab Results Interpretation Result Diagram: 12/11/16 1907 12/11/16 1907 Test 12/11/16 19:07 12/11/16 20:15 White Blood Count 6.0th/mm3 (3.8-10.1) Red Blood Count 3.90mil/mm3 (3.90-5.20) Hemoglobin 11.8g/dL (12.0-15.6) Hematocrit 36.7% (35.0-46.0) Mean Corpuscular Volume 94.1fL (81-100) Mean Corpuscular Hemoglobin 30.3pg (27.0-35.0) Mean Corpuscular Hemoglobin Concent 32.2% (32.0-37.0) Red Cell Distribution Width 13.0% (12.3-15.4) Platelet Count 240bil/L (150-400) Neutrophils (%) (Auto) 55.6% (40-74) Lymphocytes (%) (Auto) 35.0% (14-46) Monocytes (%) (Auto) 6.3% (4-12) Eosinophils (%) (Auto) 2.2% (0-5) Basophils (%) (Auto) 0.7% (0-3) Sodium Level 134mEq/L (134-144) Potassium Level 4.4mEq/L (3.5-5.2) Chloride Level 96mEq/L (97-108) Carbon Dioxide Level 25mmol/L (18-29) Blood Urea Nitrogen 20mg/dL (8-27) Creatinine 0.93mg/dL (0.57-1.00) Estimat Glomerular Filtration Rate 85mL/min (>59) Glucose Level 299mg/dL (60-99) Calcium Level 10.0mg/dL (8.5-10.1) Magnesium Level 1.7mg/dL (1.6-2.6) Total Bilirubin 0.3mg/dL (0.0-1.2) Aspartate Amino Transf (AST/SGOT) 14U/L (0-50) Alanine Aminotransferase (ALT/SGPT) 11U/L (0-32) Alkaline Phosphatase 79U/L (25-165) Total Protein 8.4g/dL (6.4-8.4) Albumin 4.0g/dL (3.4-5.0) Lipase 58U/L (13-60) Urine Color Yellow (YELLOW) Urine Appearance Hazy (CLEAR,HAZY) Urine pH 5.5 (5.0-8.0) Urine Specific Lavina 1.010 (1.003-1.035) Urine Protein Negativemg/dL (NEG,TRACE) Urine Glucose (UA) 250mg/dL (NEGATIVE) Urine Ketones Negativemg/dL (NEGATIVE) Urine Occult Blood Negative (NEGATIVE) Urine Nitrite Positive (NEGATIVE) Urine Bilirubin Negative (NEGATIVE) Urine Urobilinogen Normalmg/dL (NORMAL) Urine Leukocyte Esterase Small (NEGATIVE) Urine RBC 0-2/hpf (0-2) Urine WBC 6-10/hpf (0-5) Urine Epithelial Cells Moderate/hpf (NONE-MOD) Urine Crystals None seen (NONE SEEN) Urine Bacteria Many/hpf (NONE-FEW) Urine Hyaline Casts None/lpf (NONE) Urine Granular Casts None seen (NONE SEEN) Urine Waxy Casts None seen (NONE SEEN) Urine Red Blood Cell Casts None seen (NONE SEEN) Urine White Blood Cell Casts None seen (NONE SEEN) Urine Mucus None seen (None Seen) Urine Trichomonas None seen (NONE SEEN) Urine Yeast None (NONE SEEN) Urinalysis Comment None Urine Culture Reflexed Indicated Re-Eval/Medical Decision Med Decision/Clinical Course Well apearing, CC of L hip/inguinal pain. No injury, musculoskeletal exam reassuring, has LLQ tenderness. UA suggests UTI labs otherwise reassuring, no diverticlar disease on CT. Rocephin given in ED, will start cephalexen at home Re-Evaluation/Progress : Time of Eval: 22:06 Patient Status: Moderate relief Re-Evaluation/Progress Note: Pt rechecked. Informed of diagnosis of UTI, plan of treatment and discharge. Pt understands and agrees with plan. F/U and RTER warnings given. All questions addressed. Counseled Regarding: Diagnosis, Lab results, Need for follow-up, When/why to return to ED Discharge & Departure Impression: Primary Impression: UTI (urinary tract infection) Urinary tract infection type: site unspecified Hematuria presence: without hematuria Qualified Code: N39.0 - Urinary tract infection, site not specified Disposition: Home Discharge Condition All VS Reviewed: Yes Condition: Stable Patient Instructions: Urinary Tract Infection in Women (ED) Additional Instructions: Emergency Department evaluation included interview, examination, labs and catscan. You have a urinary tract infection. I have started you on antibiotics at the ED. We will continue oral antibiotics at home with cephalexen for 5 days. 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 Take hydrocodone as needed for pain, 1 every 4 hrs as needed. Sometimes this pain medication can cause constipation. You can counteract this with Metamucil. Plan to follow up with primary care within the following week. Return to the Emergency Department if you experience any new or worsening symptoms including increased pain, fever, or blood in urine. Referrals: Al Figueroa MD (PCP) Scribe Attestation Portion of this note were transcribed by Dionne Darling. I, Dr. Echeverria, personally performed the history, physical exam, and medical decision-making: I reviewed and confirmed the accuracy for the information in the transcribed note. Signed by: caleb Mejia, 12/11/16 2200 copies to: Al Figueroa MD, Donald L MD Dec 11, 2016 18:22 Dionne Darling Dec 11, 2016 18:29
[2016-12-11] MEDS ORDERED: 0.9% Sodium Chloride 1,000 ML IV ONE (18:33)
[2016-12-11] MEDS ORDERED: HYDROmorphone 0.5 mg/0.5 mL iSecure Syringe IVPUSH PRN (18:35)
[2016-12-11 19:11] VITALS: BP 116/68; PULSE 67; RESP 20; O2SAT 97
[2016-12-11] MEDS: Ondansetron 2 mg/mL 2 mL Inj IVPUSH PRN ×2 (19:13→22:22)
[2016-12-11 19:20] LABS: BASOPHILS % (AUTO) 0.7 % (0-3); EOSINOPHILS % (AUTO) 2.2 % (0-5); MONOCYTES % (AUTO) 6.3 % (4-12); Mean Corpuscular Hemoglobin 30.3 pg (27.0-35.0); Mean Corpuscular Volume 94.1 fL (81-100); NEUTROPHILS % (AUTO) 55.6 % (40-74); Platelet Count 240 bil/L (150-400)
[2016-12-11 19:38] LABS: Magnesium 1.7 mg/dL (1.6-2.6)
--- NOTE | 2016-12-11 20:18 | DRSVH ---
PROCEDURE: CT ABDOMEN AND PELVIS WITH CONTRAST ([id number]) INDICATIONS: LLQ abd pain TECHNIQUE: After the administration of intravenous contrast, 5 mm thick sections acquired from the diaphragm to the symphysis. 5 mm coronal and sagittal reformats were acquired. For radiation dose reduction, the following was used: automated exposure control, adjustment of mA and/or kV according to patient angel chen COMPARISON: [facility], CT, CT ABD PELVIS W CON, 08/27/2016, 12:28. FINDINGS: Image quality: Excellent. ABDOMEN: Lung bases: Increased chronic markings are present at both lung bases. Acute disease is not appreciat ed.. Heart size is normal. Solid organs: Liver and spleen are normal in size and enhancement. Gallbladder has been removed. B iliary system is non dilated. Pancreas enhances normally. No adrenal nodules. Kidneys demonstrate normal size and enhancement, without hydronephrosis. Peritoneum and bowel: Bowel loops demonstrate normal wall thickness and caliber. There is some sligh t prominence of proximal jejunal loops but no specific transition point is seen as the bowel loops ta per to a more normal size distally. Scattered colonic diverticula are seen. No free fluid or air. Nodes and vessels: No retroperitoneal or mesenteric adenopathy by size criteria. Aorta and inferior vena cava are normal in size. Miscellaneous: A small fatty paraumbilical hernia is unchanged. PELVIS: Genitourinary: Bladder wall thickness is normal. Miscellaneous: No inguinal hernias or adenopathy. Bones: No suspicious bony lesions. No vertebral body compression fractures. IMPRESSION: Cause of left lower quadrant abdominal pain is not identified. Colonic diverticula but no inflammation. Previous cholecystectomy. Bowel gas pattern is considered within normal limits with some fluid in some of the mid to proximal s mall bowel loops thought to be a normal pattern without identifiable transition point to suggest obst ruction. Dictated by: Jin Joshua M.D. on 12/11/2016 at 20:08 Approved by: Jin Joshua M.D. on 12/11/2016 at 20:17
[2016-12-11 20:35] LABS: APPEARANCE,URINE HAZY (CLEAR,HAZY); COLOR,URINE YELLOW (YELLOW); OCCULT BLOOD,URINE NEGATIVE (NEGATIVE); PH,URINE 5.5 (5.0-8.0)
[2016-12-11 20:36] LABS: UROBILINOGEN,URINE NORMAL (NORMAL)
[2016-12-11] MEDS ORDERED: cefTRIAXone Inj 2,000 MG in Dextrose 5% Minibag Plus 50 ML IV ONE (20:45)
[2016-12-11] MEDS ORDERED: _HYDROcodone/APAP 5-325 mg Tablet PO PRN (22:10)
[2016-12-11] MEDS ORDERED: CEPH500C PO (22:12)
[2016-12-11 22:37] VITALS: BP 129/61; PULSE 69; RESP 18; O2SAT 97
== END 2016-12-11 22:38 | disposition home or self-care (01) ==
LOC: SED 17:58
DX: N39.0 Urinary tract infection, site not specified (principal); B96.1 Klebsiella pneumoniae [K. pneumoniae] as the cause of diseases classified elsewhere; E11.9 Type 2 diabetes mellitus without complications; I10 Essential (primary) hypertension; E78.5 Hyperlipidemia, unspecified; E03.9 Hypothyroidism, unspecified; F41.9 Anxiety disorder, unspecified; G47.33 Obstructive sleep apnea (adult) (pediatric); Z79.82 Long term (current) use of aspirin; Z79.4 Long term (current) use of insulin; Z79.84 Long term (current) use of oral hypoglycemic drugs
CPT/HCPCS: 36415; 74177; 80053; 81000; 82948; 83690; 83735; 85025; 87077; 87086; 87088; 87186; 96361; 96365; 96375; 96376; 99285; J0696; J1170; J2405; J7030; Q9967

== ENCOUNTER 2016-12-30 09:00 | Emergency (ER) | payer MEDICARE, MEDICAID ==
[~2016-12-30] VITALS: Ht 160 cm; Wt 81.9 kg
[~2016-12-30 09:00] MED LIST changes: +CEPH500C PO
[2016-12-30 09:03] VITALS: BP 144/83; PULSE 73; RESP 12; O2SAT 97
--- NOTE | 2016-12-30 09:14 | ED.REPORT ---
HPI-General Illness Date of Service Dec 30, 2016 ED Provider: Claudio Ford MD Patient is a 71 year old female with a history of diabetes and hypertension who presents to the ED complaining of left sided chest pain onset this morning. Associated symptoms include pain that radiates down the left arm and jaw. She denies shortness of breath, vomiting, abdominal pain or cough. Patient rates the pain as a 10/10 and describes it as a pressure. She denies pain with deep inhalation and the pain is not exertional. The patient states that she had similar symptoms a year ago where she was diagnosed with pneumonia. Nursing Notes Stated Complaint: CHEST PAIN,NUMBNESS IN LT ARM,FEELING COLD Chief Complaint: Chest Pain Nursing Notes Reviewed: Yes Allergies: Coded Allergies: No Known Allergies (Verified , 12/11/16) Scheduled Aspirin-Expunged Drug, Do Not Renew! (Ecotrin-Expunged Drug, Do Not Renew!) 81 Mg Tabec 81 MG PO QPM Azithromycin (Zithromax) 250 Mg Tablet 250 MG PO DAILY Cephalexin (Cephalexin) 500 Mg Capsule 500 MG PO QID Cholecalciferol (Vitamin D3) (Vitamin D) 1,000 Unit Tablet 2,000 UNIT PO DAILY Ciprofloxacin (Ciprofloxacin) 500 Mg Tablet 500 MG PO BID Ciprofloxacin (Ciprofloxacin) 500 Mg Tablet 500 MG PO BID Citalopram-Expunged Drug, Do Not Renew! (Citalopram-Expunged Drug, Do Not Renew! ) 10 Mg Tablet 10 MG PO QAM Glipizide (Glipizide) 5 Mg Tablet 5 MG PO DAILY Insulin Glargine-Expunged Drug, Do Not Renew! (Lantus-Expunged Drug, Do Not Renew!) 100 Units/Ml Pen.[email or web address].kit 60 UNIT SUBQ PM Insulin Lispro-Expunged Drug, Do Not Renew! (Humalog-Expunged Drug, Do Not Renew !) 300 Unit Vial 10 UNIT SQ TID Levofloxacin (Levofloxacin) 750 Mg Tablet 750 MG PO DAILY Levothyroxine (Levothyroxine) 88 Mcg Tablet 88 MCG PO DAILY Levothyroxine-Expunged Drug, Do Not Renew! (Synthroid-Expunged Drug, Do Not Renew!) 150 Mcg Tablet 75 MG PO DAILYAC 0.15 MG = 150 MCG Lisinopril-Expunged Drug, Do Not Renew! (Lisinopril-Expunged Drug, Do Not Renew! ) 10 Mg Tablet 10 MG PO DAILY Loratadine (Claritin) 10 Mg Capsule 10 MG PO DAILY Metformin ER (Metformin ER) 500 Mg Tablet 500 MG PO DAILY Pantoprazole DR (Protonix) 40 Mg Tablet 40 MG PO DAILYAC Simvastatin-Expunged Drug, Choose New Med! (Simvastatin-Expunged Drug, Choose New Med!) 40 Mg Tablet 40 MG PO HS INPATIENT MAX DOSE 40 MG General Time Seen by MD: 09:10 Chief Complaint Chest pain Hx Obtained From: Patient Arrived By: Walk-in Sudden in Onset?: Yes Location: : Chest Quality: Painful, Pressure Recent Healthcare: No recent hospitalization, Recent doctor visit Similar Sx Previous: Yes Past Medical History Past Medical History Obstructive sleep apnea, on CPAP Hyperlipidemia Hypothyroidism Anxiety Diabetes Hypertension Past Surgical History Appendectomy, Cholecystectomy, Stomach ulcer surgery. Family History Noncontributory Smoking History Never Smoker Social History Alcohol Use: Denies alcohol use Drug Use: Denies drug use Other Social History: Good social support, Local resident Ambulatory Status Independent Review of Systems Full Review of Systems Constitutional: Denies: Chills, Fever Respiratory: Denies: Non-productive cough, Pleuritic pain, Shortness of breath Cardiovascular: Reports: Chest pain GI: Denies: Abdominal pain, Vomiting Musculoskeletal: Reports: Extremity pain Complete sys rev & neg: except as marked. Physical Exam Constitutional: Well-developed, well-nourished. Not diaphoretic. Non toxic appearing. Head: Normocephalic and atraumatic. Eyes: EOM are normal. Pupils are equal, round, and reactive to light. Neck: Supple, no tracheal deviation. Cardiovascular: Normal rate, regular rhythm. Equal and intact distal pulses throughout. Pulmonary/Chest: Reproducable left side chest pain. Mild bilateral rales. Abdominal: Soft. No distension. There is no tenderness, rebound, or guarding. Bowel sounds present. Musculoskeletal: Range of motion grossly intact, moving all extremities. Trace edema bilateral lower extremities. Neurological: AOx3. Grossly nonfocal exam. Strength and sensation intact and equal to bilateral upper and lower extremities. Skin: Warm and dry, no rashes or pallor appreciated. Psychiatric: Appropriate mood and affect. Behavior appears normal. Vital Signs Vital Signs Date Time Temp Pulse Resp B/P Pulse Ox O2 Delivery O2 Flow Rate FiO2 12/30/16 14:25 36.7 83 20 135/54 95 Room Air 12/30/16 11:53 66 20 150/78 99 Room Air 12/30/16 11:24 75 20 152/68 98 Room Air 12/30/16 09:03 36.6 73 12 144/83 97 Room Air Initial VS: Reviewed Interpretation & Diagnostics Lab Results Interpretation Result Diagram: 12/30/16 0915 12/30/16 0915 Test 12/30/16 09:15 12/30/16 12:50 White Blood Count 6.4th/mm3 (3.8-10.1) Red Blood Count 3.95mil/mm3 (3.90-5.20) Hemoglobin 12.0g/dL (12.0-15.6) Hematocrit 37.0% (35.0-46.0) Mean Corpuscular Volume 93.7fL (81-100) Mean Corpuscular Hemoglobin 30.4pg (27.0-35.0) Mean Corpuscular Hemoglobin Concent 32.4% (32.0-37.0) Red Cell Distribution Width 12.9% (12.3-15.4) Platelet Count 226bil/L (150-400) Neutrophils (%) (Auto) 50.9% (40-74) Lymphocytes (%) (Auto) 38.9% (14-46) Monocytes (%) (Auto) 7.5% (4-12) Eosinophils (%) (Auto) 2.0% (0-5) Basophils (%) (Auto) 0.5% (0-3) Sodium Level 138mEq/L (134-144) Potassium Level 4.7mEq/L (3.5-5.2) Chloride Level 101mEq/L (97-108) Carbon Dioxide Level 24mmol/L (18-29) Blood Urea Nitrogen 18mg/dL (8-27) Creatinine 0.97mg/dL (0.57-1.00) Estimat Glomerular Filtration Rate 81mL/min (>59) Glucose Level 203mg/dL (60-99) Calcium Level 10.6mg/dL (8.5-10.1) Magnesium Level 1.7mg/dL (1.6-2.6) Total Bilirubin 0.3mg/dL (0.0-1.2) Aspartate Amino Transf (AST/SGOT) 13U/L (0-50) Alanine Aminotransferase (ALT/SGPT) 10U/L (0-32) Alkaline Phosphatase 81U/L (25-165) Total Protein 8.4g/dL (6.4-8.4) Albumin 4.2g/dL (3.4-5.0) Hold Olivares Top Tube Received (Received) Troponin T < 0.010ug/L (0.0-0.011) ECG Interpretation Time: 09:18 Interpreted by: ED physician Normal ECG Interpretation: Normal rate (68), Normal sinus rhythm X-Ray Chest Interpretation Chest Xray Interpretation: IMPRESSION: New left mid lung infiltrate suspicious for pneumonia. Dictated by: Nik Boland M.D. on 12/30/2016 at 9:30 Approved by: Nik Boland M.D. on 12/30/2016 at 9:31 View: Portable, 1 view Interpretation / Wet Read by: Interpret - Radiologist Re-Eval/Medical Decision Med Decision/Clinical Course In summary, 71F who presents to the ED for evaluation of nonexertional, reproducible chest pain. Differential includes ACS, PE, PTX, aortic dissection, myocarditis/pericarditis, abdominal etiology such as cholecystitis, MSK pain. Pain has been constant since onset; troponin negative x 2. HEART score of 3. EKG demonstrates sinus rhythm with no acute ischemic changes. Highly reproducible upon examination and pain is described as exactly consistent with the pain she has been having. Lowest risk by [place] for PE. No evidence of pneumothorax on chest x-ray or exam. Rest of labs unremarkable. Neither clinical presentation, exam, or EKG seem c/w pericarditis or myocarditis. Patient does have what appears to be a pneumonia on CXR; while this may be at least partially responsible for her pain, she is adamant that the tenderness she has on exam is the only pain she's been having. Plan to treat PNA as outpatient, which patient is agreeable to. Having said that, patient would likely benefit from a stress test or other provocative testing for risk stratification - discussed doing this here or as an outpatient and decided to be discharged and follow up with her PCP. Patient agreeable to plan, no further questions. Careful return precautions discussed at length. Time of Eval: 10:50 Re-Evaluation/Progress Note: Patient states that she is still having chest pain. Discussed X-ray results. Time of Eval: 12:38 Re-Evaluation/Progress Note: Patient reports that her pain has improved. Time of Eval: 12:46 Patient Status: Condition improved Re-Evaluation/Progress Note: Discussed results and plan for discharge pending repeat trop. Patient understands and agrees to plan. All questions were addressed. Counseled Regarding: Diagnosis, Lab results, Need for follow-up, When/why to return to ED Discharge & Departure Primary Impression: Pneumonia Pneumonia type: due to unspecified organism Laterality: left Lung location : unspecified part of lung Qualified Code: J18.9 - Pneumonia, unspecified organism Additional Impression: Chest pain Chest pain type: unspecified Qualified Code: R07.9 - Chest pain, unspecified Disposition: Home Discharge Condition All VS Reviewed: Yes Condition: Improved Patient Instructions: Bacterial Pneumonia (ED), Chest Pain (ED) Additional Instructions: Your X-ray showed that you have a pneumonia. This can be treated using the antibiotic, Levaquin once a day for 10 days. Follow up with your primary care physician in the next 1-2 days for further evaluation. Return to the emergency department if you develop any new or worsening symptoms including shortness of breath, chest pain, fever, or increasing pain. La radiografa demostr que tiene thomas neumona. [place] puede ser tratado con el antibitico Levaquin thomas vez al da chapis 10 d as. Seguimiento con davis mdico de atencin primaria en los prximos ro 1-2 para la evaluacin adicional. Volver al servicio de urgencias si presenta cualquier sntoma nuevo o que empeora, incluyen falta de aliento, dolor en el pecho, fiebre o incremento del dolor. Referrals: Al Figueroa MD (PCP) Scribe Attestation Portions of this note were transcribed by Dilcia St. I, Dr. Ford personally performed the history, physical exam and medical decision-making; I reviewed and confirmed the accuracy of the information in the transcribed note. Signed by: Dilcia St, Eric, 12/30/16 and 1250 copies to: Al Figueroa MD, William B MD Dec 30, 2016 09:[address] Dec 30, 2016 09:36
[2016-12-30 09:25] LABS: BASOPHILS % (AUTO) 0.5 % (0-3); MONOCYTES % (AUTO) 7.5 % (4-12); Mean Corpuscular Hemoglobin 30.4 pg (27.0-35.0); Mean Corpuscular Volume 93.7 fL (81-100); NEUTROPHILS % (AUTO) 50.9 % (40-74); Platelet Count 226 bil/L (150-400)
--- NOTE | 2016-12-30 09:33 | DRSVH ---
PROCEDURE: X-RAY CHEST ONE VIEW, PORTABLE ([id number]) INDICATIONS: CHEST PAIN TECHNIQUE: One view of the chest was acquired. COMPARISON: [facility], CR, CHEST 2VW, 12/27/2014, 16:46. [facility], CR, XR CHEST 1VW (PORTABLE), 09/13/2016, 3:22. FINDINGS: Surgical changes and devices: None. Lungs and pleura: There is medial left mid lung infiltrate suspicious for pneumonia. Diffuse interst itial prominence appears unchanged. No pleural effusions or pneumothorax. Mediastinum: Mediastinal contours appear normal. Heart size is normal. Bones and chest wall: No suspicious bony lesions. Overlying soft tissues appear unremarkable. IMPRESSION: New left mid lung infiltrate suspicious for pneumonia. Dictated by: Nik Boland M.D. on 12/30/2016 at 9:30 Approved by: Nik Boland M.D. on 12/30/2016 at 9:31
[2016-12-30 09:57] LABS: TROPONIN T 0.01 ug/L (0.0-0.011)
[2016-12-30 10:08] LABS: Magnesium 1.7 mg/dL (1.6-2.6)
[2016-12-30] MEDS ORDERED: Nitroglycerin 2% 1 Gm Ointment TOPICAL SCH (11:00)
[2016-12-30 11:24] VITALS: BP 152/68; PULSE 75; RESP 20; O2SAT 98
[2016-12-30 11:53] VITALS: BP 150/78; PULSE 66; RESP 20; O2SAT 99
[2016-12-30] MEDS ORDERED: LEVO750T39 PO (13:41)
[2016-12-30 14:25] VITALS: BP 135/54; PULSE 83; RESP 20; O2SAT 95
== END 2016-12-30 14:26 | disposition home or self-care (01) ==
LOC: SED 09:00
DX: J18.9 Pneumonia, unspecified organism (principal); I10 Essential (primary) hypertension; E11.9 Type 2 diabetes mellitus without complications; E03.9 Hypothyroidism, unspecified; E78.5 Hyperlipidemia, unspecified; F41.9 Anxiety disorder, unspecified; Z79.84 Long term (current) use of oral hypoglycemic drugs